=== PATIENT | male | born 1990 | race American Indian/Alaskan Native ===

== ENCOUNTER 2021-02-16 14:14 | Emergency (ER) | payer SELFPAY ==
--- NOTE | 2021-02-16 16:28 | Emergency Department Report ---
ED General Adult HPI - General Chief complaint: Pain General Stated complaint: ARTHRITIS PAIN, BACK PX, STD CHECK Time Seen by Provider: 02/16/21 15:36 Source: patient Mode of arrival: Ambulatory Limitations: No Limitations - History of Present Illness Initial comments: 31-year-old -Citizen Of [place] male presents to the emergency room for left hand pain x2 months. Patient states the pain is worse in the morning. 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 Patient denies any direct injury. Patient also requests STD check. Denies any penile discharge admits to testicular pain in the left. Denies any abdominal pain no nausea no vomiting no fever. Onset/Timin -: days(s) Location: genitals (Left testicle) Severity scale (0 -10): 7 Quality: aching Consistency: constant Improves with: none Worsens with: none Associated Symptoms: denies other symptoms Treatments Prior to Arrival: none ED Review of Systems ROS: Stated complaint: ARTHRITIS PAIN, BACK PX, STD CHECK Other details as noted in HPI Comment: All other systems reviewed and negative ED Physical Exam - General Limitations: No Limitations General appearance: alert, in no apparent distress, other (Does not appear toxic. Patient is comfortably texting during the interview.) - Head Head exam: Present: atraumatic, normocephalic - Eye Eye exam: Present: normal appearance - ENT ENT exam: Present: normal external ear exam - Neck Neck exam: Present: normal inspection, full ROM - Respiratory Respiratory exam: Absent: respiratory distress, accessory muscle use - Cardiovascular Cardiovascular Exam: Present: regular rate. Absent: systolic murmur, diastolic murmur, rubs, gallop - Rectal Rectal exam: Present: deferred - Extremities Exam Extremities exam: Present: normal inspection - Expanded Upper Extremity Exam Left Shoulder Exam: Present: normal inspection, full ROM Upper Arm exam: Present: normal inspection, full ROM Elbow exam: Present: normal inspection, full ROM Forearm Wrist exam: Present: normal inspection, full ROM Hand Wrist exam: Present: normal inspection, full ROM. Absent: swelling - Back Exam Back exam: Present: normal inspection - Neurological Exam Neurological exam: Present: alert, oriented X3, normal gait - Psychiatric Psychiatric exam: Present: normal affect, normal mood - Skin Skin exam: Present: warm, dry, intact, normal color. Absent: rash ED Course Vital Signs 02/16/21 14:22 Temperature 97.8 F Pulse Rate 85 Respiratory 18 Rate Blood Pressure 143/104 [Right] O2 Sat by Pulse 100 Oximetry ED Medical Decision Making - Medical Decision Making 39-year-old -Citizen Of [place] male presents to the emergency room for pain to upper buttocks cleft times a couple days. Patient states he has had a history of this before in the past. Patient denies any drainage no fever no chills. States his pain is on a 3 out of 10. Has not taken anything for pain. Denies any past medical history. Does not have a primary care provider. Ultrasound has been ordered. Patient refused ultrasound. Patient discharged to follow-up with urology. Critical care attestation.: If time is entered above; I have spent that time in minutes in the direct care of this critically ill patient, excluding procedure time. ED Disposition Clinical Impression: Testicular pain, left, Finger pain, left Disposition: 01 HOME / SELF CARE / HOMELESS Condition: Stable Instructions: Testicular Self-Exam Additional Instructions: Follow-up with an urologist. Referrals: [facility] [Outside] - 3-5 Days NEIL PEDRO MD [Staff Physician] - 3-5 Days LISSETTE FIGUEROA MD [Staff Physician] - 3-5 Days Forms: Work/School Release Form(ED)
[2021-02-16 17:32] VITALS: BP 148/89
== END 2021-02-16 17:32 | disposition home or self-care (01) ==
LOC: EDBD → ED 14:14
DX: N50.812 Left testicular pain (principal); M79.645 Pain in left finger(s)
CPT/HCPCS: 99282

== ENCOUNTER 2021-06-28 10:44 | Emergency (ER) | payer SELFPAY ==
--- NOTE | 2021-06-28 13:17 | Emergency Department Report ---
ED General Adult HPI - General Chief complaint: Dental/Oral Stated complaint: TOOTHACHE/FACE PAIN Source: patient Mode of arrival: Ambulatory Limitations: No Limitations - History of Present Illness Initial comments: Patient is a 31-year-old -[place] male with no past medical history who presents to the ED with complaint of acute onset persistent painful swollen left maxillary gingiva with premolar and molar toothache for the last 4 days. Patient states that the pain radiates to the lower jaw and that he also has been having painful swollen anterior and posterior cervical lymph nodes. Patient stated due to severe pain he has not been able to sleep or eat anything because of pain. Patient denies dizziness, syncope, fever, chills, sore throat, headache, chest pain or shortness of breath, dysphagia, dysphonia, cough or traumatic injury. MD Complaint: Left premolar and molar tooth ache -: Sudden, days(s) (4) Location: mouth Radiation: non-radiation Severity scale (0 -10): 7 Quality: aching, sharp Consistency: constant Improves with: none Worsens with: eating Associated Symptoms: denies other symptoms. denies: confusion, chest pain, cough, diaphoresis, fever/chills, headaches, loss of appetite, malaise, nausea/vomiting, rash, seizure, shortness of breath, syncope, weakness Treatments Prior to Arrival: NSAID - Related Data Previous Rx's Medication Instructions Recorded Last Taken Type Acetaminophen/Codeine [Tylenol 1 tab PO Q6H PRN #12 tab 06/28/21 Unknown Rx /Codeine # 3 tab] Clindamycin [Clindamycin CAP] 300 mg PO Q8H #30 cap 06/28/21 Unknown Rx Ketorolac [Toradol] 10 mg PO Q8H PRN #20 tab 06/28/21 Unknown Rx Allergies Allergy/AdvReac Type Severity Reaction Status Date / Time No Known Allergies Allergy Verified 06/28/21 11:50 ED Review of Systems ROS: Stated complaint: TOOTHACHE/FACE PAIN Other details as noted in HPI Constitutional: denies: chills, fever Eyes: denies: eye pain, eye discharge, vision change ENT: dental pain (Left mandibular premolar and molar toothache with swollen gums). denies: ear pain, throat pain Respiratory: denies: cough, shortness of breath, wheezing Cardiovascular: denies: chest pain, palpitations Endocrine: no symptoms reported Gastrointestinal: denies: abdominal pain, nausea, diarrhea Genitourinary: denies: urgency, dysuria Musculoskeletal: denies: back pain, joint swelling, arthralgia Skin: denies: rash, lesions Neurological: denies: headache, weakness, paresthesias Psychiatric: denies: anxiety, depression Hematological/Lymphatic: denies: easy bleeding, easy bruising ED Past Medical Hx - Past Medical History Previous Medical History?: No - Surgical History Past Surgical History?: No - Social History Smoking Status: Current Every Day Smoker Substance Use Type: None - Medications Home Medications: Home Medications Medication Instructions Recorded Confirmed Last Taken Type Acetaminophen/Codeine [Tylenol 1 tab PO Q6H PRN #12 tab 06/28/21 Unknown Rx /Codeine # 3 tab] Clindamycin [Clindamycin CAP] 300 mg PO Q8H #30 cap 06/28/21 Unknown Rx Ketorolac [Toradol] 10 mg PO Q8H PRN #20 tab 06/28/21 Unknown Rx ED Physical Exam - General Limitations: No Limitations General appearance: alert, in no apparent distress - Head Head exam: Present: atraumatic, normocephalic, normal inspection - Eye Eye exam: Present: normal appearance, PERRL, EOMI Pupils: Present: normal accommodation - ENT ENT exam: Present: mucous membranes moist, TM's normal bilaterally, normal external ear exam, other (Swollen, tender left mandibular gingiva; tender left mandibular premolar and molar teeth.) - Neck Neck exam: Present: normal inspection, full ROM, lymphadenopathy (Anterior and posterior cervical lymphadenopathy) - Respiratory Respiratory exam: Present: normal lung sounds bilaterally. Absent: respiratory distress, wheezes, chest wall tenderness, accessory muscle use, decreased breath sounds, prolonged expiratory - Cardiovascular Cardiovascular Exam: Present: regular rate, normal rhythm, normal heart sounds. Absent: systolic murmur, diastolic murmur, rubs, gallop - GI/Abdominal GI/Abdominal exam: Present: soft, normal bowel sounds. Absent: tenderness, guarding, rebound, hyperactive bowel sounds, hypoactive bowel sounds, organomegaly, mass - Extremities Exam Extremities exam: Present: normal inspection, full ROM, normal capillary refill. Absent: tenderness - Back Exam Back exam: Present: normal inspection, full ROM. Absent: tenderness, CVA tenderness (R), CVA tenderness (L), paraspinal tenderness - Neurological Exam Neurological exam: Present: alert, oriented X3, CN II-XII intact, normal gait, reflexes normal - Psychiatric Psychiatric exam: Present: normal affect, normal mood - Skin Skin exam: Present: warm, dry, intact, normal color. Absent: rash ED Course Vital Signs 06/28/21 11:52 Temperature 97.5 F L Pulse Rate 86 Respiratory 18 Rate Blood Pressure 97/69 O2 Sat by Pulse 99 Oximetry ED Medical Decision Making - Medical Decision Making This is a 31-year-old -[place] male with no past medical history who presents to the ED with complaint of acute onset persistent painful swollen left maxillary gingiva with premolar and molar toothache for the last 4 days. Patient states that the pain radiates to the lower jaw and that he also has been having painful swollen anterior and posterior cervical lymph nodes. Patient stated due to severe pain he has not been able to sleep or eat anything because of pain. In the ED, patient is alert and oriented x3 and is not in any distress. Patient was his primary care physician in 7 to 10 days for reevaluation. Patient was advised return to the ED immediately if symptoms get worse. Discharged home on pain medication and antibiotics and advised to follow-up with - Differential Diagnosis Dental abscess; dental caries; gingivitis Critical care attestation.: If time is entered above; I have spent that time in minutes in the direct care of this critically ill patient, excluding procedure time. ED Disposition Clinical Impression: Acute gingivitis, Dental caries, Dental abscess Disposition: HOME / SELF CARE / HOMELESS Is pt being admited?: No Does the pt Need Aspirin: No Condition: Stable Instructions: Dental Abscess, [id number], Trench Mouth, Dental Extraction, Care After, [id number] Additional Instructions: Take medication with food, drink plenty of fluids and follow-up with your primary care physician or dentist in 7 to 10 days for reevaluation. Return to the ED immediately if symptoms get worse. Prescriptions: Clindamycin [Clindamycin CAP] 300 mg PO Q8H #30 cap Ketorolac [Toradol] 10 mg PO Q8H PRN #20 tab PRN Reason: Pain Acetaminophen/Codeine [Tylenol /Codeine # 3 tab] 1 tab PO Q6H PRN #12 tab PRN Reason: Pain , Severe (7-10) Referrals: [facility] [Outside] - 7-10 days [facility] [Outside] - 7-10 days Time of Disposition: 13:19 Print Language: YAKUT
[2021-06-28 14:15] VITALS: BP 136/94
== END 2021-06-28 14:13 | disposition home or self-care (01) ==
LOC: ED 10:44
DX: K04.7 Periapical abscess without sinus (principal); K02.9 Dental caries, unspecified; K05.00 Acute gingivitis, plaque induced; F17.200 Nicotine dependence, unspecified, uncomplicated; Z79.899 Other long term (current) drug therapy
CPT/HCPCS: 99282

== ENCOUNTER 2021-07-12 16:24 | Emergency (ER) | payer SELFPAY ==
[2021-07-12] MEDS ORDERED: IBUPROFEN 600 MG TAB PO ONE (20:26)
[2021-07-12] MEDS ORDERED: oxyCODONE /ACETAMINOPHEN 5-325MG TAB PO ONE (20:26)
--- NOTE | 2021-07-12 20:29 | Event Note ---
Date: 07/12/21 Medical screening examination note: 31-year-old gentleman, presenting to the ER with a complaint of left lateral mandibular pain, dental pain over tooth #17, and lumbar back pain after mechanical fall. Patient is awake, alert, oriented, sober, moving 4 extremities. He has point tenderness to the angle of the left mandible, and paralumbar tenderness. There is no midline spinal tenderness. He is moving 4 extremities, and he is clinically sober. Give patient pain medication. Obtain plain films of the lumbar spine, and mandible. Detailed history and physical to be performed by oncoming ER provider Vital Signs 07/12/21 17:08 Temperature 99.7 F H Pulse Rate 92 H Respiratory 18 Rate Blood Pressure 99/69 O2 Sat by Pulse 97 Oximetry
--- NOTE | 2021-07-12 21:05 | XRay Report ---
XR mandible <4V INDICATION / CLINICAL INFORMATION: pain in left jaw after fall COMPARISON: None available. FINDINGS: The temporal mandibular joints are preserved. Mandibular condyles are well seated. No acute fracture identified. Paranasal sinuses are clear. IMPRESSION: No acute findings. Signer Name: Terrance Dillon MD Signed: 07/12/2021 9:01 PM Workstation Name: [id number]
--- NOTE | 2021-07-12 21:05 | XRay Report ---
XR spine lumbosacral 2-3V INDICATION / CLINICAL INFORMATION: lower back pain fa;;. COMPARISON: None available. FINDINGS: BONES/JOINT(S): Transitional lumbosacral anatomy. There is mild right convex curvature centered at th e presumed L4-L5 level. No significant malalignment. Vertebral body heights are intact. No acute frac ture. Mild disc space height loss at presumed L5-S1. PARASPINAL SOFT TISSUES:No significant abnormality. ADDITIONAL FINDINGS: None. IMPRESSION: 1. No acute findings. 2. Degenerative changes, as above. Signer Name: Terrance Dillon MD Signed: 07/12/2021 9:01 PM Workstation Name: [id number]
[2021-07-12] MEDS ORDERED: ONDANSETRON 4 MG/2 ML INJ IV ONE (21:36)
[2021-07-12] MEDS ORDERED: MORPHINE 4 MG/1 ML INJ IV ONE (21:36)
[2021-07-12] MEDS ORDERED: SODIUM CHLORIDE 0.9% 1000 ML 1,000 ML IV ONE (21:52)
--- NOTE | 2021-07-12 22:15 | Cat Scan Report ---
CT HEAD WITHOUT CONTRAST INDICATION / CLINICAL INFORMATION: FALL. TECHNIQUE: All CT scans at this location are performed using CT dose reduction for ALARA by means of automated exposure control. COMPARISON: None available. FINDINGS: BRAIN PARENCHYMA: No acute intracranial hemorrhage. No evidence of recent infarct. No mass effect or midline shift. VENTRICULAR SYSTEM/EXTRA-AXIAL SPACES: Ventricles are normal for age. No extra-axial fluid collection . ORBITS: Normal as visualized. SKELETAL SYSTEM/SOFT TISSUES: Normal bones and soft tissues. PARANASAL SINUSES/MASTOID AIR CELLS: Opacified left maxillary sinus with chronic wall thickening/sinu sitis. ADDITIONAL FINDINGS: None. IMPRESSION: 1. No acute intracranial abnormality. Signer Name: Terrance Dillon MD Signed: 07/12/2021 10:10 PM Workstation Name: [id number]
--- NOTE | 2021-07-12 22:40 | Cat Scan Report ---
CT CERVICAL SPINE WITHOUT CONTRAST INDICATION / CLINICAL INFORMATION: FALL. TECHNIQUE: Axial CT images were obtained through the cervical spine. Sagittal and coronal reformatted images were produced. All CT scans at this location are performed using CT dose reduction for ALARA by means of automated exposure control. COMPARISON: None available. FINDINGS: MANDIBLE: No significant abnormality of the visualized mandible or TMJs. SKULL BASE: No significant abnormality of the skull base. CRANIOCERVICAL JUNCTION: No significant abnormality of the craniocervical junction. ALIGNMENT: No significant abnormality of alignment. VERTEBRAL BODIES: Vertebral body heights fairly uniform throughout. No acute fracture. DISK SPACES: Disk spaces are fairly uniform throughout. FACET JOINTS: No significant abnormality of facet articulations. No acute fractures. CENTRAL CANAL: No severe central stenosis. SOFT TISSUES: No significant abnormality of soft tissues or musculature. THYROID: No significant abnormality. UPPER CHEST: No significant abnormality of the visualized chest. ADDITIONAL FINDINGS: Left maxillary sinus is nearly completely opacified with bony remodeling. Findin gs could be compatible with chronic sinusitis. IMPRESSION: 1. No evidence of acute cervical fracture. 2. Nonacute findings as detailed. Signer Name: David Busch II, MD Signed: 07/12/2021 10:36 PM Workstation Name: [id number]
[2021-07-12] MEDS ORDERED: dexAMETHasone 20 MG/5 ML VIAL IV ONE (22:54)
[2021-07-12] MEDS ORDERED: KETOROLAC 30 MG/1 ML INJ IV ONE (22:54)
--- NOTE | 2021-07-12 23:45 | Emergency Department Report ---
ED Fall HPI - General Chief Complaint: Back Pain/Injury Stated Complaint: PAIN ON TOP OF SPINE/SEEN HER X WKS AGO Source: patient Mode of arrival: Ambulatory - History of Present Illness Initial Comments: Patient is a 41-year-old -[place] male with no past medical history who presents to the ED with complaint of acute onset persistent low back pain, neck pain and headache after he slipped and fell off a 6 foot ladder about 10 hours ago and landed on his left side hitting his head and neck as well as his low back on concrete. Patient states that the pain has been persistent and worsened in the last 8 hours. Patient denies dizziness, syncope, loss of consciousness, nausea and vomiting, change in vision, numbness and tingling or weakness of upper or lower extremities bilaterally, abdominal pain or hematemesis or urinary and bowel incontinence or saddle paresthesia. MD Complaint: fall, other (headache, neck pain, low back pain) -: Sudden Fall From: from height (distance) (6 foot ladder) When Fall Occurred: other (10 hours ago) Place Fall Occurred: work Loss of Consciousness: none Prolonged Down Time?: no Symptoms Prior to Fall: none Location: head, neck, back (lower) Severity: severe Severity scale (0 -10): 8 Quality: sharp, aching Context: tripped/slipped Associated Symptoms: headache, neck pain, other (low back pain). denies: numbness, weakness, chest paint, shortness of breath, abdominal pain, unable to walk, lightheaded, vertigo, confusion - Related Data Previous Rx's Medication Instructions Recorded Last Taken Type Acetaminophen/Codeine [Tylenol 1 tab PO Q6H PRN #12 tab 06/28/21 Unknown Rx /Codeine # 3 tab] Clindamycin [Clindamycin CAP] 300 mg PO Q8H #30 cap 06/28/21 Unknown Rx Ketorolac [Toradol] 10 mg PO Q8H PRN #20 tab 06/28/21 Unknown Rx Acetaminophen/Codeine [Tylenol 1 tab PO Q6H PRN #10 tab 07/12/21 Unknown Rx /Codeine # 3 tab] Amoxicillin/Potassium Clav 1 each PO Q12H #20 tab 07/12/21 Unknown Rx [Augmentin 875-125 Tablet] Ibuprofen [Motrin] 800 mg PO Q8HR PRN #30 tablet 07/12/21 Unknown Rx methOCARBAMOL [Robaxin TAB] 750 mg PO BID PRN #30 tab 07/12/21 Unknown Rx Allergies Allergy/AdvReac Type Severity Reaction Status Date / Time No Known Allergies Allergy Verified 06/28/21 11:50 ED Review of Systems ROS: Stated complaint: PAIN ON TOP OF SPINE/SEEN HER X WKS AGO Other details as noted in HPI Constitutional: denies: chills, fever Eyes: denies: eye pain, eye discharge, vision change ENT: denies: ear pain, throat pain Respiratory: denies: cough, shortness of breath, wheezing Cardiovascular: denies: chest pain, palpitations Endocrine: no symptoms reported Gastrointestinal: denies: abdominal pain, nausea, vomiting, diarrhea Genitourinary: denies: urgency, dysuria Musculoskeletal: back pain (Low back pain), arthralgia (Neck pain). denies: joint swelling Skin: denies: rash, lesions Neurological: headache. denies: weakness, paresthesias Psychiatric: denies: anxiety, depression Hematological/Lymphatic: denies: easy bleeding, easy bruising ED Past Medical Hx - Social History Smoking Status: Current Every Day Smoker Substance Use Type: None - Medications Home Medications: Home Medications Medication Instructions Recorded Confirmed Last Taken Type Acetaminophen/Codeine [Tylenol 1 tab PO Q6H PRN #12 tab 06/28/21 Unknown Rx /Codeine # 3 tab] Clindamycin [Clindamycin CAP] 300 mg PO Q8H #30 cap 06/28/21 Unknown Rx Ketorolac [Toradol] 10 mg PO Q8H PRN #20 tab 06/28/21 Unknown Rx Acetaminophen/Codeine [Tylenol 1 tab PO Q6H PRN #10 tab 07/12/21 Unknown Rx /Codeine # 3 tab] Amoxicillin/Potassium Clav 1 each PO Q12H #20 tab 07/12/21 Unknown Rx [Augmentin 875-125 Tablet] Ibuprofen [Motrin] 800 mg PO Q8HR PRN #30 tablet 07/12/21 Unknown Rx methOCARBAMOL [Robaxin TAB] 750 mg PO BID PRN #30 tab 07/12/21 Unknown Rx ED Physical Exam - General Limitations: No Limitations General appearance: alert, in no apparent distress - Head Head exam: Present: atraumatic, normocephalic, normal inspection - Eye Eye exam: Present: normal appearance, PERRL, EOMI Pupils: Present: normal accommodation - ENT ENT exam: Present: normal exam, normal orophraynx, mucous membranes moist, TM's normal bilaterally, normal external ear exam - Neck Neck exam: Present: normal inspection, tenderness (Palpable cervical paraspinal musculoskeletal tenderness), full ROM. Absent: meningismus - Respiratory Respiratory exam: Present: normal lung sounds bilaterally. Absent: respiratory distress, wheezes, rales, chest wall tenderness, decreased breath sounds, prolonged expiratory - Cardiovascular Cardiovascular Exam: Present: regular rate, normal rhythm, normal heart sounds. Absent: systolic murmur, diastolic murmur, rubs, gallop - GI/Abdominal GI/Abdominal exam: Present: soft, normal bowel sounds. Absent: tenderness, guarding, rebound, hyperactive bowel sounds, hypoactive bowel sounds, organomegaly - Extremities Exam Extremities exam: Present: normal inspection, full ROM, normal capillary refill. Absent: tenderness, pedal edema, joint swelling - Back Exam Back exam: Present: normal inspection, full ROM, tenderness (Palpable lumbosacral paraspinal musculoskeletal tenderness), muscle spasm, paraspinal tenderness. Absent: CVA tenderness (L), vertebral tenderness - Neurological Exam Neurological exam: Present: alert, oriented X3, CN II-XII intact, normal gait, reflexes normal - Psychiatric Psychiatric exam: Present: normal affect, normal mood - Skin Skin exam: Present: warm, dry, intact, normal color. Absent: rash ED Course Vital Signs 07/12/21 17:08 Temperature 99.7 F H Pulse Rate 92 H Respiratory 18 Rate Blood Pressure 99/69 O2 Sat by Pulse 97 Oximetry ED Medical Decision Making - Radiology Data [facility] [address] [place] [address] Cat Scan Report Signed Patient: LISSETTE JULES MR#: [id number] : 1990 Acct:[id number] Age/Sex: 31 / M ADM Date: 07/12/21 Loc: ED Attending Dr: Ordering Physician: RACHEL HAGEN Date of Service: 07/12/21 Procedure(s): CT head/brain wo con Accession Number(s): [id number] cc: RACHEL HAGEN CT HEAD WITHOUT CONTRAST INDICATION / CLINICAL INFORMATION: FALL. TECHNIQUE: All CT scans at this location are performed using CT dose reduction for ALARA by means of automated exposure control. COMPARISON: None available. FINDINGS: BRAIN PARENCHYMA: No acute intracranial hemorrhage. No evidence of recent infarct. No mass effect or midline shift. VENTRICULAR SYSTEM/EXTRA-AXIAL SPACES: Ventricles are normal for age. No extra- axial fluid collection. ORBITS: Normal as visualized. SKELETAL SYSTEM/SOFT TISSUES: Normal bones and soft tissues. PARANASAL SINUSES/MASTOID AIR CELLS: Opacified left maxillary sinus with chronic wall thickening/sinusitis. ADDITIONAL FINDINGS: None. IMPRESSION: 1. No acute intracranial abnormality. Signer Name: Timmy Dillon MD Signed: 07/12/2021 10:10 PM Workstation Name: [id number] Transcribed By: JS Dictated By: TIMMY DILLON MD Electronically Authenticated By: TIMMY DILLON MD Signed Date/Time: 07/12/212209 DD/ 08 TD/TT: [facility] [address] [place] [address] Cat Scan Report Signed Patient: LISSETTE JULES MR#: [id number] : 1990 Acct:[id number] Age/Sex: 31 / M ADM Date: 07/12/21 Loc: ED Attending Dr: Ordering Physician: RACHEL HAGEN Date of Service: 07/12/21 Procedure(s): CT cervical spine wo con Accession Number(s): [id number] cc: RACHEL HAGEN CT CERVICAL SPINE WITHOUT CONTRAST INDICATION / CLINICAL INFORMATION: FALL. TECHNIQUE: Axial CT images were obtained through the cervical spine. Sagittal and coronal reformatted images were produced. All CT scans at this location are performed using CT dose reduction for ALARA by means of automated exposure control. COMPARISON: None available. FINDINGS: MANDIBLE: No significant abnormality of the visualized mandible or TMJs. SKULL BASE: No significant abnormality of the skull base. CRANIOCERVICAL JUNCTION: No significant abnormality of the craniocervical junction. ALIGNMENT: No significant abnormality of alignment. VERTEBRAL BODIES: Vertebral body heights fairly uniform throughout. No acute fracture. DISK SPACES: Disk spaces are fairly uniform throughout. FACET JOINTS: No significant abnormality of facet articulations. No acute fractures. CENTRAL CANAL: No severe central stenosis. SOFT TISSUES: No significant abnormality of soft tissues or musculature. THYROID: No significant abnormality. UPPER CHEST: No significant abnormality of the visualized chest. ADDITIONAL FINDINGS: Left maxillary sinus is nearly completely opacified with bony remodeling. Findings could be compatible with chronic sinusitis. IMPRESSION: 1. No evidence of acute cervical fracture. 2. Nonacute findings as detailed. Signer Name: Ethel Bridges II, MD Signed: 07/12/2021 10:36 PM Workstation Name: [id number] Transcribed By: CRISTIANO Dictated By: ETHEL BRIDGES II, MD Electronically Authenticated By: ETHEL BRIDGES II, MD Signed Date/Time: 07/12/212235 DD/ 33 TD/TT: [facility] [address] [place] [address] XRay Report Signed Patient: LISSETTE JULES MR#: [id number] : 1990 Acct:[id number] Age/Sex: 31 / M ADM Date: 07/12/21 Loc: ED Attending Dr: Ordering Physician: KAIN ABARCA MD Date of Service: 07/12/21 Procedure(s): XR spine lumbosacral 2-3V Accession Number(s): [id number] cc: KAIN ABARCA MD Fluoro Time In Minutes: XR spine lumbosacral 2-3V INDICATION / CLINICAL INFORMATION: lower back pain fa;;. COMPARISON: None available. FINDINGS: BONES/JOINT(S): Transitional lumbosacral anatomy. There is mild right convex curvature centered at the presumed L4-L5 level. No significant malalignment. Vertebral body heights are intact. No acute fracture. Mild disc space height loss at presumed L5-S1. PARASPINAL SOFT TISSUES:No significant abnormality. ADDITIONAL FINDINGS: None. IMPRESSION: 1. No acute findings. 2. Degenerative changes, as above. Signer Name: Timmy Dillon MD Signed: 07/12/2021 9:01 PM Workstation Name: [id number] Transcribed By: JS Dictated By: TIMMY DILLON MD Electronically Authenticated By: TIMMY DILLON MD Signed Date/Time: 07/12/212100 DD/ 51 TD/TT: [facility] [address] [place] [address] XRay Report Signed Patient: LISSETTE JULES MR#: [id number] : 1990 Acct:[id number] Age/Sex: 31 / M ADM Date: 07/12/21 Loc: ED Attending Dr: Ordering Physician: KAIN ABARCA MD Date of Service: 07/12/21 Procedure(s): XR mandible <4V Accession Number(s): [id number] cc: KAIN ABARCA MD Fluoro Time In Minutes: XR mandible <4V INDICATION / CLINICAL INFORMATION: pain in left jaw after fall COMPARISON: None available. FINDINGS: The temporal mandibular joints are preserved. Mandibular condyles are well seated. No acute fracture identified. Paranasal sinuses are clear. IMPRESSION: No acute findings. Signer Name: Timmy Dillon MD Signed: 07/12/2021 9:01 PM Workstation Name: [id number] Transcribed By: MAIN Dictated By: TIMMY DILLON MD Electronically Authenticated By: TIMMY DILLON MD Signed Date/Time: 07/12/212100 DD/ 99 TD/TT: - Medical Decision Making This is a 41-year-old -[place] male with no past medical history who presents to the ED with complaint of acute onset persistent low back pain, neck pain and headache after he slipped and fell off a 6 foot ladder about 10 hours ago and landed on his left side hitting his head and neck as well as his low back on concrete. Patient states that the pain has been persistent and worsened in the last 8 hours. In the ED, patient is alert and oriented x3 and is not in any distress. Patient appears to be in pain. Patient was treated for pain in the ED. The L-spine x-ray showed no acute fractures or subluxation. The C- spine CT scan without contrast showed no acute cervical disc fractures or subluxation. The head CT scan without contrast showed no acute intracranial abnormalities or hemorrhage but an incidental finding of opacified left maxillary sinus with chronic wall thickening/sinusitis consistent with chronic sinusitis. The mandibular x-ray showed no acute fractures or subluxation. On reevaluation, patient's pain is well controlled medication. Patient will discharge home on pain medications and advised to follow-up with his primary care physician in 7 to 10 days for reevaluation or return to the ED immediately if symptoms get worse. - Differential Diagnosis Head injury; cervical sprain; muscle spasm; back injury; facial injury; Critical care attestation.: If time is entered above; I have spent that time in minutes in the direct care of this critically ill patient, excluding procedure time. ED Disposition Clinical Impression: Sprain of ligament of cervical spine region, Sprain of ligaments of lumbar spine, initial encounter, Spasm of muscle of lower back, Chronic left maxillary sinusitis Contusion of face, scalp and neck Qualifiers: Encounter type: initial encounter Qualified Code(s): S00.83XA - Contusion of other part of head, initial encounter; S00.03XA - Contusion of scalp, initial encounter; S10.93XA - Contusion of unspecified part of neck, initial encounter Disposition: 01 HOME / SELF CARE / HOMELESS Is pt being admited?: No Does the pt Need Aspirin: No Condition: Stable Instructions: Muscle Cramps and Spasms, [id number], Sinusitis, Adult, [id number], Cervical Sprain, [id number], Facial or Scalp Contusion, [id number], Back Injury Prevention, [id number], Jaw Contusion, [id number]-[id number] Additional Instructions: The head CT scan without contrast showed no acute intracranial abnormalities or hemorrhage but an incidental finding of opacification in the left maxillary sinuses consistent with chronic sinusitis. The C-spine CT scan without contrast showed no acute fractures or subluxation of the cervical spine. The L-spine x- ray showed no acute fractures or subluxation of the lumbar spine. The mandible x-ray showed no acute mandibular fractures or subluxations. Therefore take medication with food, drink plenty of fluids and follow-up with your primary care physician in 7 to 10 days for reevaluation. Return to the ED immediately if symptoms get worse. Prescriptions: Amoxicillin/Potassium Clav [Augmentin 875-125 Tablet] 1 each PO Q12H #20 tab Ibuprofen [Motrin] 800 mg PO Q8HR PRN #30 tablet PRN Reason: Pain , Severe (7-10) methOCARBAMOL [Robaxin TAB] 750 mg PO BID PRN #30 tab PRN Reason: Muscle Spasm Acetaminophen/Codeine [Tylenol /Codeine # 3 tab] 1 tab PO Q6H PRN #10 tab PRN Reason: Pain , Severe (7-10) Referrals: [facility] [Provider Group] - 3-5 Days Forms: Work/School Release Form(ED) Time of Disposition: 23:53 Print Language: VIETNAMESE
[2021-07-13 00:16] VITALS: BP 100/69
== END 2021-07-13 00:11 | disposition home or self-care (01) ==
LOC: ED 16:24
DX: S13.8XXA Sprain of joints and ligaments of other parts of neck, initial encounter (principal); S33.5XXA Sprain of ligaments of lumbar spine, initial encounter; J32.0 Chronic maxillary sinusitis; S00.83XA Contusion of other part of head, initial encounter; F17.200 Nicotine dependence, unspecified, uncomplicated; Z79.899 Other long term (current) drug therapy; W01.0XXA Fall on same level from slipping, tripping and stumbling without subsequent striking against object, initial encounter; Y93.89 Activity, other specified; Y92.89 Other specified places as the place of occurrence of the external cause; Y99.8 Other external cause status
CPT/HCPCS: 70100; 70450; 72100; 72125; 96361; 96374; 96375; 99284; J1100; J1885; J2270; J2405; J7030